=== PATIENT | male | born 1940 | race Caucasian/White ===

== ENCOUNTER → 2016-12-04 | Outpatient (CLI) | payer BC, MEDICARE ==
[~2016-12-04] MED LIST: ALLOPURINOL300 MG; AMLODIPINE BESYL5 MG PO; ASPIR 8181 M1 PO; AZELASTINE205.5 MCG/ BOTH NARES; DAILY VALUE1 EACH PO; LISINOPRIL-HCT1 EAC3 PO; LO-DOSE ASPIRIN81 M1 PO; NASAL DECONGEST30 ML BOTH NARES; NEXIUM40 MG; NEXIUM40 MG PO; TRIBENZOR
== END | disposition home or self-care (01) ==
LOC: CDC 08:34
DX: R94.31 Abnormal electrocardiogram [ECG] [EKG] (principal); M48.06 Spinal stenosis, lumbar region
CPT/HCPCS: 93000